=== PATIENT | male | born 1950 | race Caucasian/White ===

== ENCOUNTER 2022-02-07 09:03 | Day surgery (SDC) | payer MEDICARE ==
[~2022-02-07] VITALS: Ht 180.3 cm; Wt 77.3 kg
[~2022-02-07 09:03] MED LIST: LIDOcaine Viscous 15ml cup ONE; MIDAZolam 1 MG/ML 5ML VIAL ONE; fentaNYL/PF 50MCG/1 ML 2ML syringe ONE
[2022-02-07 09:15] VITALS: BP 144/107
[2022-02-07] MEDS ORDERED: TRIA10.8 BOTHNARES (09:21)
[2022-02-07] MEDS ORDERED: GLUC-221 (09:21)
[2022-02-07] MEDS ORDERED: A/C/1TAB (09:22)
[2022-02-07] MEDS ORDERED: MULT-1085 PO (09:22)
[2022-02-07 10:10] VITALS: BP 117/71
[2022-02-07 10:20] VITALS: BP 112/64
[2022-02-07 10:30] VITALS: BP 119/65
[2022-02-07 10:40] VITALS: BP 116/70
== END 2022-02-07 10:40 | disposition home or self-care (01) ==
LOC: GI LAB 09:03
PROVIDERS: ATTEND Internal Medicine Gastroenterology
DX: R13.10 Dysphagia, unspecified (principal); K31.89 Other diseases of stomach and duodenum
CPT/HCPCS: 43239; 43450; G0500; J2250; J3010; J7030; Z7512; 43214; 88305; 99152; A4620